=== PATIENT | female | born 1990 | race Caucasian/White ===

== ENCOUNTER 2019-07-24 11:52 | Emergency (ER) | payer OTHER ==
[~2019-07-24] VITALS: Ht 167.6 cm; Wt 90.7 kg
[~2019-07-24 11:52] MED LIST: IBUP800 PO; Verotin-Gr Cap1 EACH PO
[2019-07-24] MEDS ORDERED: Vitamin D2000 UNIT PO (12:53)
== END 2019-07-24 16:07 | disposition home or self-care (01) ==
LOC: ER 11:52
DX: H53.8 Other visual disturbances (principal); R20.2 Paresthesia of skin; R53.83 Other fatigue; R53.1 Weakness; G43.909 Migraine, unspecified, not intractable, without status migrainosus; Z88.8 Allergy status to other drugs, medicaments and biological substances; Z79.899 Other long term (current) drug therapy
CPT/HCPCS: 70450; 99284-25

== ENCOUNTER 2020-06-10 10:46 | Day surgery (SDC) | payer OTHER ==
[~2020-06-10] VITALS: Ht 167.6 cm; Wt 98.0 kg
[~2020-06-10 10:46] MED LIST changes: +BUPR150ER PO; +LEVONOR-ETH ES1 EAC7 PO; +Vitamin D2000 UNIT PO
--- NOTE | 2020-06-10 12:26 | NUR ---
06/10/20 1226 Hakeem Huang ABDOMEN PREPPED WITH CHLORA PREP BY ORSC.OKG NURIA AREA PREPPED WITH CHLOREXIDINE BY ORSC.DANNIELLE
--- NOTE | 2020-06-10 14:49 | NUR ---
06/10/20 1449 Jeremiah,Rahel FENTANYL TITRATED 2 DOSES OF 25MCG AND 1 DOSE OF 1 TAB PERCOCET EFFECTIVE IN CONTROLLING PAIN. DISCHARGE INSTRUCTIONS GIVEN AND PT. STATES UNDERSTANDS. DC HOME WITH ALL BELONGINGS.
[2020-06-10] MEDS ORDERED: OXYC5 ×2 (23:52)
== END 2020-06-10 14:20 | disposition home or self-care (01) ==
LOC: ORSCSDS 10:46
PROVIDERS: Obstetrics & Gynecology
PROC: 0UT74ZZ Resection of Bilateral Fallopian Tubes, Percutaneous Endoscopic Approach (ICD-10-PCS; principal; 2020-06-10 12:00)
DX: Z30.2 Encounter for sterilization (principal)
CPT/HCPCS: 36415; 86850; 86900; 86901; 88302; A9270; J0171; J1100; J1885; J2250; J2405; J2704; J2710; J3010; J7120

== ENCOUNTER 2020-06-10 23:18 | Observation (INO) | payer OTHER ==
[~2020-06-10] VITALS: Ht 167.6 cm; Wt 95.2 kg
[2020-06-10] MEDS ORDERED: OXYC5 ×2 (23:52)
[2020-06-11 00:44] LABS: BASOPHILS ABSOLUTE AUTO 0.03 K/mm3 (0.00-0.23); BASOPHILS PERCENT AUTO 0 % (0-2); EOSINOPHILS PERCENT AUTO 0 % (0-6); Hematocrit 41.5 % (33.0-51.0); Hemoglobin 13.6 g/dL (11.5-16.0); IMMATURE GRAN ABSOLUTE AUTO 0.11 K/mm3 (0.00-0.10); IMMATURE GRAN PERCENT AUTO 1 % (0-1); LYMPHOCYTES ABSOLUTE AUTO 0.47 K/mm3 (0.84-5.20); LYMPHOCYTES PERCENT AUTO 2 % (21-46); MONOCYTES ABSOLUTE AUTO 1.13 K/mm3 (0.16-1.47); MONOCYTES PERCENT AUTO 5 % (4-13); Mean Corpuscular HGB 29.2 pg (26.0-34.0); Mean Corpuscular HGB Conc 32.8 g/dL (31.5-36.5); Mean Corpuscular Volume 89 fL (80-100); Mean Platelet Volume 10.3 fL (9.1-12.4); NEUTROPHILS ABSOLUTE AUTO 20.74 K/mm3 (1.96-9.15); NEUTROPHILS PERCENT AUTO 92 % (41-73); Platelet Count 307 K/mm3 (150-400); RDW Coefficient Variation 12.2 % (11.7-14.2); RDW Standard Deviation 39.7 fL (35.1-46.3); Red Blood Cell Count 4.65 M/mm3 (3.80-5.20); White Blood Cell Count 22.48 K/mm3 (4.00-11.30)
[2020-06-11 01:02] LABS: Alanine Aminotransfer (ALT/SGP 33 U/L (12-78); Albumin, Blood 4.2 g/dL (3.4-5.0); Albumin/Globulin Ratio 1.2 (0.8-1.8); Alk Phos 75 U/L (50-136); Anion Gap 7 mmol/L (6-16); Aspartate Aminotrans (AST/SGOT 18 U/L (12-37); Bilirubin, Total 0.5 mg/dL (0.1-1.0); Blood Urea Nitrogen 12 mg/dL (8-24); Bun/Creatinine Ratio 19.4 (12.0-20.0); CO2, Blood 23 mmol/L (21-32); Calcium, Blood 8.9 mg/dL (8.5-10.1); Chloride, Blood 109 mmol/L (98-108); Creatinine, Blood 0.62 mg/dL (0.40-1.00); Globulin, Blood 3.5 g/dL (2.2-4.0); Glomerular Filtration Rate >60 (60-); Glucose, Blood 156 mg/dL (70-99); Potassium, Blood 3.8 mmol/L (3.5-5.5); Sodium, Blood 139 mmol/L (136-145); Total Protein, Blood 7.7 g/dL (6.4-8.2)
--- NOTE | 2020-06-11 06:23 | NUR ---
ARRIVED FROM ED PT ARRIVED FROM ED AT 0450. SHE IS A POD1 FOR TUBAL LIGATION W/ DR. MASSEY. REPORT RECIEVED FROM KIM AT ED @ 0440. PT AOX4. VSS. SHE AMBULATE FROM STRECHER TO BED, WEAK DUE TO R ABD PAIN. SBA. PT DENIES N/V. BT PRESENT. ABD MILD DISTENDED. LAP INC SITE W/ STERI STRIPS ARE CDI. PERIPAD W/ SMALL SCANT AMOUNT OF BLEED. PT DENIES DIZZINESS, SOB, CP, AND N/T. SHE IS NPO AT THIS TIME. PAIN MED ADMINSTERED. GAS X ALSO GIVEN. PT DENIES PASSING FLATUS SINCE SURGERY. LAST BM WAS MORNING BEFORE SURGERY. PLAN FOR OBSERVATION, MANAGE PAIN, BOWEL REGIMEN, MONITOR LABS AND REPEAT IMAGING.
[2020-06-11 06:54] LABS: Source, Urine Clean Catch
[2020-06-11 06:57] LABS: Bilirubin, Urine Neg (Neg); Blood, Urine 5+ (Neg); Glucose Qualitative, Urine Neg (Neg); Ketones, Urine Neg (Neg); Leukocyte Esterase, Urine Neg (Neg); Nitrite, Urine Neg (Neg); Protein, Urine 1+ (Neg); Urobilinogen, Urine NORM (Normal)
[2020-06-11 06:59] LABS: BASOPHILS ABSOLUTE AUTO 0.03 K/mm3 (0.00-0.23); BASOPHILS PERCENT AUTO 0 % (0-2); EOSINOPHILS PERCENT AUTO 0 % (0-6); Hemoglobin 11.5 g/dL (11.5-16.0); IMMATURE GRAN ABSOLUTE AUTO 0.05 K/mm3 (0.00-0.10); IMMATURE GRAN PERCENT AUTO 0 % (0-1); LYMPHOCYTES ABSOLUTE AUTO 0.61 K/mm3 (0.84-5.20); LYMPHOCYTES PERCENT AUTO 4 % (21-46); MONOCYTES ABSOLUTE AUTO 0.72 K/mm3 (0.16-1.47); MONOCYTES PERCENT AUTO 5 % (4-13); Mean Corpuscular HGB 28.9 pg (26.0-34.0); Mean Corpuscular HGB Conc 31.9 g/dL (31.5-36.5); Mean Corpuscular Volume 91 fL (80-100); Mean Platelet Volume 10.3 fL (9.1-12.4); NEUTROPHILS ABSOLUTE AUTO 14.49 K/mm3 (1.96-9.15); NEUTROPHILS PERCENT AUTO 91 % (41-73); Platelet Count 241 K/mm3 (150-400); RDW Coefficient Variation 12.2 % (11.7-14.2); RDW Standard Deviation 40.9 fL (35.1-46.3); Red Blood Cell Count 3.98 M/mm3 (3.80-5.20)
[2020-06-11 07:16] LABS: Alanine Aminotransfer (ALT/SGP 25 U/L (12-78); Albumin, Blood 3.3 g/dL (3.4-5.0); Albumin/Globulin Ratio 1.1 (0.8-1.8); Alk Phos 59 U/L (50-136); Anion Gap 6 mmol/L (6-16); Aspartate Aminotrans (AST/SGOT 13 U/L (12-37); Bilirubin, Total 0.6 mg/dL (0.1-1.0); Blood Urea Nitrogen 11 mg/dL (8-24); Bun/Creatinine Ratio 17.9 (12.0-20.0); CO2, Blood 26 mmol/L (21-32); Calcium, Blood 8.2 mg/dL (8.5-10.1); Chloride, Blood 110 mmol/L (98-108); Creatinine, Blood 0.62 mg/dL (0.40-1.00); Globulin, Blood 2.9 g/dL (2.2-4.0); Glomerular Filtration Rate >60 (60-); Glucose, Blood 125 mg/dL (70-99); Potassium, Blood 3.6 mmol/L (3.5-5.5); Sodium, Blood 142 mmol/L (136-145); Total Protein, Blood 6.2 g/dL (6.4-8.2)
[2020-06-11 07:18] LABS: Appearance, Urine Clear (Clear); Color, Urine Yellow (P-Yellow)
[2020-06-11 07:23] LABS: Bacteria Few /hpf; Squamous Epithelial Cells Few /hpf (Few)
--- NOTE | 2020-06-11 07:32 | NUR ---
DR FRAGOSO CALLED IN FOR UPDATE. PT LABS REVIEWED W/. WILL NOTIFY DAY RN.
--- NOTE | 2020-06-11 18:26 | NUR ---
SUMMARY: PT ADMITTED FOR R SIDED ABD PAIN WITH POD1 TUBAL LIGATION. PT A/O, VSS. PT HAS HAD INTERMITTANT PAIN AND NAUSEA. MEDICATED PER EMAR. TYLENOL AND TORADOL SEEMED TO IMPROVE PAIN THE MOST AND PT FEELS BETTER AT THIS TIME, RATING PAIN 3/10. PT GIVEN GAS-X, DENIES PASSING GAS, ABLE TO WALK IN THE [place] A FEW TIMES. SURGICAL SITES WNL. PT DID NOT EAT MUCH TODAY DUE TO NAUSEA. FLUIDS CONTINUE TO INFUSE. PT INDEPENDENT IN ROOM, PLAN TO OBSERVE TONIGHT AND POSSIBLY DC TOMORROW. NO ACUTE SAFETY CONCERNS AT THIS TIME.
[2020-06-12 04:57] LABS: BASOPHILS ABSOLUTE AUTO 0.04 K/mm3 (0.00-0.23); BASOPHILS PERCENT AUTO 0 % (0-2); EOSINOPHILS ABSOLUTE AUTO 0.02 K/mm3 (0.00-0.68); EOSINOPHILS PERCENT AUTO 0 % (0-6); Hematocrit 33.6 % (33.0-51.0); Hemoglobin 10.9 g/dL (11.5-16.0); IMMATURE GRAN ABSOLUTE AUTO 0.04 K/mm3 (0.00-0.10); IMMATURE GRAN PERCENT AUTO 0 % (0-1); LYMPHOCYTES ABSOLUTE AUTO 0.65 K/mm3 (0.84-5.20); LYMPHOCYTES PERCENT AUTO 5 % (21-46); MONOCYTES ABSOLUTE AUTO 0.35 K/mm3 (0.16-1.47); MONOCYTES PERCENT AUTO 3 % (4-13); Mean Corpuscular HGB 29.3 pg (26.0-34.0); Mean Corpuscular HGB Conc 32.4 g/dL (31.5-36.5); Mean Corpuscular Volume 90 fL (80-100); Mean Platelet Volume 11.1 fL (9.1-12.4); NEUTROPHILS ABSOLUTE AUTO 11.08 K/mm3 (1.96-9.15); NEUTROPHILS PERCENT AUTO 91 % (41-73); Platelet Count 200 K/mm3 (150-400); RDW Coefficient Variation 12.5 % (11.7-14.2); RDW Standard Deviation 41.1 fL (35.1-46.3); Red Blood Cell Count 3.72 M/mm3 (3.80-5.20); White Blood Cell Count 12.18 K/mm3 (4.00-11.30)
[2020-06-12 05:33] LABS: Alanine Aminotransfer (ALT/SGP 21 U/L (12-78); Albumin, Blood 2.9 g/dL (3.4-5.0); Albumin/Globulin Ratio 0.9 (0.8-1.8); Alk Phos 59 U/L (50-136); Anion Gap 5 mmol/L (6-16); Aspartate Aminotrans (AST/SGOT 21 U/L (12-37); Bilirubin, Total 1.2 mg/dL (0.1-1.0); Blood Urea Nitrogen 12 mg/dL (8-24); Bun/Creatinine Ratio 19.8 (12.0-20.0); CO2, Blood 27 mmol/L (21-32); Calcium, Blood 8.3 mg/dL (8.5-10.1); Chloride, Blood 108 mmol/L (98-108); Creatinine, Blood 0.61 mg/dL (0.40-1.00); Globulin, Blood 3.2 g/dL (2.2-4.0); Glomerular Filtration Rate >60 (60-); Glucose, Blood 89 mg/dL (70-99); Potassium, Blood 3.5 mmol/L (3.5-5.5); Sodium, Blood 140 mmol/L (136-145); Total Protein, Blood 6.1 g/dL (6.4-8.2)
[2020-06-12] MEDS ORDERED: HYDMOR2 PO ×2 (13:40)
[2020-06-12] MEDS ORDERED: SENN187 PO ×2 (13:46)
[2020-06-12] MEDS ORDERED: DOCU100 PO ×2 (13:46)
[2020-06-12] MEDS ORDERED: MIRALAX17 GM PO ×2 (13:46)
--- NOTE | 2020-06-12 14:22 | NUR ---
DISCHARGE PT EDUCATED ON AND RECEIVED PRINTED DISCHARGE INSTRUCTIONS AND VERBALIZED AN UNDERSTANDING. RX FILLED AND PICKED UP BY SIGNIFICANT OTHER. IV DC'D. PT GATHERING ALL PERSONAL BELONGINGS. PT REPORTS SHE FEELS COMFORTABLE GOING HOME.
== END 2020-06-12 14:34 | disposition home or self-care (01) ==
LOC: ER 23:18 → SURS 23:19
PROVIDERS: Emergency Medicine; ADMIT Obstetrics & Gynecology
DX: G89.18 Other acute postprocedural pain (principal); R10.9 Unspecified abdominal pain; G43.909 Migraine, unspecified, not intractable, without status migrainosus; F41.9 Anxiety disorder, unspecified; Z90.49 Acquired absence of other specified parts of digestive tract; Z90.79 Acquired absence of other genital organ(s); Z87.891 Personal history of nicotine dependence; Z79.891 Long term (current) use of opiate analgesic; Z88.8 Allergy status to other drugs, medicaments and biological substances
CPT/HCPCS: 36415; 74177; 76830; 76856; 80053; 81001; 83690; 84703; 85025; 86850; 86900; 86901; 96361; 96374; 96375; 96376; 99284-25; A9270; G0378; J1170; J1885; J2270; J2405; J7120; Q9967

== ENCOUNTER 2020-06-15 19:07 | Inpatient (IN) | payer OTHER ==
[~2020-06-15] VITALS: Ht 167.6 cm; Wt 99.8 kg
[~2020-06-15 19:07] MED LIST changes: +DOCU100 PO; +HYDMOR2 PO; +MIRALAX17 GM PO; +OXYC5; +SENN187 PO
[2020-06-15 20:05] LABS: BASOPHILS ABSOLUTE AUTO 0.06 K/mm3 (0.00-0.23); BASOPHILS PERCENT AUTO 1 % (0-2); EOSINOPHILS ABSOLUTE AUTO 0.04 K/mm3 (0.00-0.68); EOSINOPHILS PERCENT AUTO 0 % (0-6); Hematocrit 38.8 % (33.0-51.0); Hemoglobin 12.8 g/dL (11.5-16.0); IMMATURE GRAN ABSOLUTE AUTO 0.16 K/mm3 (0.00-0.10); IMMATURE GRAN PERCENT AUTO 1 % (0-1); LYMPHOCYTES ABSOLUTE AUTO 0.53 K/mm3 (0.84-5.20); LYMPHOCYTES PERCENT AUTO 4 % (21-46); MONOCYTES ABSOLUTE AUTO 0.93 K/mm3 (0.16-1.47); MONOCYTES PERCENT AUTO 7 % (4-13); Mean Corpuscular HGB 29.1 pg (26.0-34.0); Mean Corpuscular Volume 88 fL (80-100); Mean Platelet Volume 9.7 fL (9.1-12.4); NEUTROPHILS ABSOLUTE AUTO 11.55 K/mm3 (1.96-9.15); NEUTROPHILS PERCENT AUTO 87 % (41-73); Platelet Count 429 K/mm3 (150-400); RDW Coefficient Variation 12.6 % (11.7-14.2); RDW Standard Deviation 41.2 fL (35.1-46.3); White Blood Cell Count 13.27 K/mm3 (4.00-11.30)
[2020-06-15] MEDS ORDERED: IBU800 M1 PO (20:26)
[2020-06-15] MEDS ORDERED: ONDA4ODT PO (20:27)
[2020-06-15 20:30] LABS: Alanine Aminotransfer (ALT/SGP 18 U/L (12-78); Albumin, Blood 2.7 g/dL (3.4-5.0); Albumin/Globulin Ratio 0.6 (0.8-1.8); Alk Phos 141 U/L (50-136); Anion Gap 10 mmol/L (6-16); Aspartate Aminotrans (AST/SGOT 11 U/L (12-37); Bilirubin, Total 0.4 mg/dL (0.1-1.0); Blood Urea Nitrogen 8 mg/dL (8-24); Bun/Creatinine Ratio 12.1 (12.0-20.0); CO2, Blood 25 mmol/L (21-32); Calcium, Blood 8.5 mg/dL (8.5-10.1); Chloride, Blood 104 mmol/L (98-108); Creatinine, Blood 0.66 mg/dL (0.40-1.00); Globulin, Blood 4.7 g/dL (2.2-4.0); Glomerular Filtration Rate >60 (60-); Glucose, Blood 88 mg/dL (70-99); Sodium, Blood 139 mmol/L (136-145); Total Protein, Blood 7.4 g/dL (6.4-8.2)
[2020-06-15 23:15] LABS: Influenza A, PCR Negative (NEGATIVE); Influenza B, PCR Negative (NEGATIVE); Resp Syncytial Virus, PCR Negative (NEGATIVE); SARS-Cov-2 (COVID-19) PCR, MMC Negative (NEGATIVE)
--- NOTE | 2020-06-16 03:27 | NUR ---
7.0 ETT, 21 CM AT LIP.
[2020-06-16 04:02] LABS: BASOPHILS ABSOLUTE AUTO 0.09 K/mm3 (0.00-0.23); BASOPHILS PERCENT AUTO 1 % (0-2); EOSINOPHILS ABSOLUTE AUTO 0.01 K/mm3 (0.00-0.68); EOSINOPHILS PERCENT AUTO 0 % (0-6); Hematocrit 44.1 % (33.0-51.0); Hemoglobin 14.9 g/dL (11.5-16.0); IMMATURE GRAN ABSOLUTE AUTO 0.33 K/mm3 (0.00-0.10); IMMATURE GRAN PERCENT AUTO 2 % (0-1); LYMPHOCYTES ABSOLUTE AUTO 0.34 K/mm3 (0.84-5.20); LYMPHOCYTES PERCENT AUTO 2 % (21-46); MONOCYTES ABSOLUTE AUTO 0.58 K/mm3 (0.16-1.47); MONOCYTES PERCENT AUTO 4 % (4-13); Mean Corpuscular HGB 29.6 pg (26.0-34.0); Mean Corpuscular HGB Conc 33.8 g/dL (31.5-36.5); Mean Corpuscular Volume 88 fL (80-100); Mean Platelet Volume 9.7 fL (9.1-12.4); NEUTROPHILS ABSOLUTE AUTO 13.13 K/mm3 (1.96-9.15); NEUTROPHILS PERCENT AUTO 91 % (41-73); Platelet Count 526 K/mm3 (150-400); RDW Coefficient Variation 12.6 % (11.7-14.2); RDW Standard Deviation 40.7 fL (35.1-46.3); Red Blood Cell Count 5.04 M/mm3 (3.80-5.20); White Blood Cell Count 14.48 K/mm3 (4.00-11.30)
[2020-06-16 04:24] LABS: BAND PERCENT MAN 13 % (0-8); BASOPHILS ABSOLUTE MAN 0.14 K/mm3 (0.00-0.23); BASOPHILS PERCENT MAN 1 % (0-2); EOSINOPHILS PERCENT MAN 0 % (0-6); LYMPHOCYTES ABSOLUTE MAN 0.28 K/mm3 (0.84-5.20); LYMPHOCYTES PERCENT MAN 2 % (21-46); METAMYELOCYTE ABSOLUTE MAN 0.14 K/mm3 (0.00-0.00); METAMYELOCYTE PERCENT MAN 1 % (0-0); MONOCYTES ABSOLUTE MAN 0.43 K/mm3 (0.16-1.47); MONOCYTES PERCENT MAN 3 % (4-13); NEUTROPHILS ABSOLUTE MAN 13.46 K/mm3 (1.96-9.15); SEG NEUTROPHILS PERCENT MAN 80 % (41-73); TOTAL CELLS COUNTED 100
[2020-06-16 04:42] LABS: Alanine Aminotransfer (ALT/SGP 24 U/L (12-78); Albumin, Blood 2.3 g/dL (3.4-5.0); Albumin/Globulin Ratio 0.5 (0.8-1.8); Alk Phos 121 U/L (50-136); Anion Gap 12 mmol/L (6-16); Aspartate Aminotrans (AST/SGOT 52 U/L (12-37); Bilirubin, Total 1.1 mg/dL (0.1-1.0); Blood Urea Nitrogen 9 mg/dL (8-24); Bun/Creatinine Ratio 13.7 (12.0-20.0); CO2, Blood 21 mmol/L (21-32); Calcium, Blood 7.6 mg/dL (8.5-10.1); Chloride, Blood 104 mmol/L (98-108); Creatinine, Blood 0.66 mg/dL (0.40-1.00); Globulin, Blood 4.5 g/dL (2.2-4.0); Glomerular Filtration Rate >60 (60-); Glucose, Blood 165 mg/dL (70-99); Potassium, Blood 3.8 mmol/L (3.5-5.5); Sodium, Blood 137 mmol/L (136-145); Total Protein, Blood 6.8 g/dL (6.4-8.2)
[2020-06-16 04:53] LABS: Source, Urine Catheter
[2020-06-16 04:55] LABS: Appearance, Urine Clear (Clear); Bilirubin, Urine Neg (Neg); Blood, Urine 2+ (Neg); Color, Urine Yellow (P-Yellow); Glucose Qualitative, Urine Neg (Neg); Ketones, Urine 4+ (Neg); Leukocyte Esterase, Urine Neg (Neg); Nitrite, Urine Neg (Neg); Protein, Urine 2+ (Neg); Urobilinogen, Urine NORM (Normal)
[2020-06-16 05:02] LABS: Amorphous Light (0-Heavy); Bacteria Few /hpf; Squamous Epithelial Cells Not Seen /hpf (Few); White Blood Cells, Urine 0-2 /hpf (0-5)
[2020-06-16 05:03] LABS: Granular Casts 0-2 /lpf (0); Hyaline Casts 0-2 /lpf (0-2)
--- NOTE | 2020-06-16 06:37 | NUR ---
ASSUMED PT CARE/END OF SHIFT SUMMARY PT ARRIVED ON UNIT FROM OR AFTER EXPLORATORY LAPAROTOMY SECONDARY TO BOWEL PERF. PT HAD A LAPARSCOPIC TUBAL LIGATION ON 06/10. DR. LOUIE EXPRESSED THAT HE WAS UNABLE TO FIND WHERE THE BOWEL PERF WAS; THEREFORE, PT ABDOMEN WAS LEFT OPEN WITH TWO PAN DRAINS IN PLACE, OR TOWLS PACKED INTO ABDOMINAL WOUND, AND COVERED WITH TRANSPARENT DRESSING. MINIMAL AMOUNTS OF SEROSANGUINEOUS DRAINAGE NOTED IN PAN DRAINS; HOWEVER, UNABLE TO MAINTAIN SUCTION. THOUGHT THAT MAYBE DRESSING WASN'T SECURE ENOUGH; THEREFORE, COVERED WITH MORE TRANSPARENT DRESSING WITH NO SUCCESS. CONCLUSSION WAS MADE THAT BOWEL WAS FULL OF AIR AND PAN BULBS WERE NOT ABLE TO COMPRESS D/T CONSTANT FILLING. ASKED DR. LOUIE IF HE WANTED THEM HOOKED TO WALL SUCTION AT LOW INTERMITTENT WITH THE RESPONSE TO CONTINUE DECOMPRESSING PAN DRAINS. VENT AC 16, TV 450, PEEP 5, FIO2 35%. PT WAS GIVEN 2MG OF VERSED AND 50MG OF BRAD UNTIL PROPOFOL GTT WAS ABLE TO BE INITIATED ONCE PT WAS ON UNIT. FURTHER ORDERS OBTAINED FOR FENTANYL GTT AND NS AT 150MLS/HR, WELL A 500CC BOLUS IF BP'S CONTINUED TO BE LOW. ANESTHESIOLOGIST STATED TO START PROPOFOL AT 75MCG/KG/HR D/T PT'S WEIGHT. CURRENTLY, SHE IS AT 65MCG/KG/HR. FENTANYL GTT AT A CONTINUOUS RATE OF 25MCG/HR WITH A LOADING DOSE OF 25MCG. MCLEAN CATHETER IS PATENT AND DRAINING CLEAR, LISA COLORED URINE TO GRAVITY. NG HOOKED TO LOW INTERMITTENT SUCTION WITH NO OUTPUT NOTED; HOWEVER, ANESTHESIOLOGIST STATED THAT PT HAD OVER 600CC OF OUTPUT NOTED IN THE OR. REPORT HANDED OFF TO DOUG SHARP
--- NOTE | 2020-06-16 08:23 | NUR ---
INITAL ASSESSMENT BEDSIDE REPORT RECIEVED FROM OFF GOING RN. PT IS INTUBATED AND SEDATED. SEE RT NOTES FOR ANY VENT SETTING CHANGES T/O SHIFT. PROPOFOL GTT AT 65MCG FOR SEDTATION AND WILL BE TITRATED T/O SHIFT NEEDED. FENTANYL GTT AT 50MCG FOR PAIN AND ADDITIONAL SEDATION. WITH ORAL CARE PT OPENS EYES AND SHAKES HEAD, BUT DOES NOT FOLLOW ANY COMMANDS. OMAR SOFT WRIST RESTRAINTS IN PLACE WITH NO SKIN OR CIRCULATION ISSUES. PT DOES PULL AGAINST RESTRAINS AND WILL MOVE LEGS. PT DOES HAVE NG TUBE IN PLACE TO LOW INT SUCTION. WITH MINIMAL BILE RETURN IN TUBE. PT HAS AN OPEN ABD AT THIS TIME WITH BLUE OR TOWEL FOR PACKING. ABD IS FIRM WITH NO BOWEL TONES. TWO PAN DRAINS IN PLACE. THE PAN BULBS CONSTANTLY FILL UP WITH AIR BUT HAVE VERY MINIMAL DRAINAGE. MCLEAN CATH IN PLACE DRAINING CLEAR YELLOW URINE. NO S/S OF INFECTION. PT DOES HAVE PAS STOCKINGS IN PLACE. TWO PERIPHERAL IVS NOTED TO RIGHT ARM. PT DOES HAVE NS RUNNING ORDERED. SEE EMAR FOR ALL ADMINISTERED MEDICATIONS T/O SHIFT. WILL CON'T TO KEEP PT SAFE T/O SHIFT.
--- NOTE | 2020-06-16 13:21 | NUR ---
SHIFT UPDATE DR LOUIE IN TO SEE PT AND CONSENT FOR SURGERY. DR MCKEON AND OR NURSE LINDA TO TAKE PT TO OR. PT IS AWAKE AT THIS TIME SHAKING HEAD YES OR NO TO QUESTIONS. SHE ALSO IS OPENINING HER MOUTH TO ALLOW THIS RN TO SUCTION HER ORAL SECRETIONS. SAFETY AND SECURITY OFFICER WAS CLEARNING WITH YOLANDE MCMILLAN RN. LTC WAS 18CC. TOTAL ADMINISTERED 161MCG.
--- NOTE | 2020-06-16 13:50 | NUR ---
06/16/20 1350 Rose Banks TRASPORTED PT FROM ICU13 VIA BED WITH . PT SEDATED AND INTUBATED. MIKE BAGGING PT DURING TRANSPORT. DRESSINNG ON ABDOMEN REMOVED BY ONCE PT ON OPERATING TABLE. DR. LOUIE RETRIEVED 2 BLUE OPERATING ROOM TOWELS FROM OPEN ABDOMEN.
--- NOTE | 2020-06-16 15:41 | NUR ---
1540-PT STATES NAUSEA IS GONE.WILL NOT GIVE A 1-10 PAIN NUMBER
--- NOTE | 2020-06-16 16:00 | NUR ---
pt arrived to room 229 from pacu s/p resection pt has midline poli dressing c/d/i pt also has a abd binder in place and ngt also using a sx to dlear mucus with coughs pt given is will demonstrate when more alert pt has a cl green drainage in tubing absent bt's
--- NOTE | 2020-06-16 16:35 | NUR ---
dilaudid teacher ballet started pt reported some cramping luq abd no bt's yet pt req a fan for being hot s/o at bedside
--- NOTE | 2020-06-16 18:01 | NUR ---
DR SKY CALLED UPDATE GIVEN
--- NOTE | 2020-06-16 18:30 | NUR ---
pt resting s/o at bedside
[2020-06-17 04:10] LABS: BASOPHILS ABSOLUTE AUTO 0.05 K/mm3 (0.00-0.23); BASOPHILS PERCENT AUTO 0 % (0-2); EOSINOPHILS PERCENT AUTO 0 % (0-6); Hematocrit 35.7 % (33.0-51.0); IMMATURE GRAN ABSOLUTE AUTO 0.56 K/mm3 (0.00-0.10); IMMATURE GRAN PERCENT AUTO 3 % (0-1); LYMPHOCYTES ABSOLUTE AUTO 0.72 K/mm3 (0.84-5.20); LYMPHOCYTES PERCENT AUTO 4 % (21-46); MONOCYTES ABSOLUTE AUTO 1.08 K/mm3 (0.16-1.47); MONOCYTES PERCENT AUTO 6 % (4-13); Mean Corpuscular HGB 29.3 pg (26.0-34.0); Mean Corpuscular HGB Conc 33.6 g/dL (31.5-36.5); Mean Corpuscular Volume 87 fL (80-100); Mean Platelet Volume 9.2 fL (9.1-12.4); NEUTROPHILS ABSOLUTE AUTO 14.38 K/mm3 (1.96-9.15); NEUTROPHILS PERCENT AUTO 86 % (41-73); Platelet Count 462 K/mm3 (150-400); RDW Coefficient Variation 13.1 % (11.7-14.2); RDW Standard Deviation 41.8 fL (35.1-46.3); White Blood Cell Count 16.79 K/mm3 (4.00-11.30)
[2020-06-17 04:33] LABS: Anion Gap 4 mmol/L (6-16); Blood Urea Nitrogen 14 mg/dL (8-24); Bun/Creatinine Ratio 24.6 (12.0-20.0); CO2, Blood 27 mmol/L (21-32); Calcium, Blood 7.4 mg/dL (8.5-10.1); Chloride, Blood 113 mmol/L (98-108); Creatinine, Blood 0.57 mg/dL (0.40-1.00); Glomerular Filtration Rate >60 (60-); Glucose, Blood 159 mg/dL (70-99); Potassium, Blood 3.8 mmol/L (3.5-5.5); Sodium, Blood 144 mmol/L (136-145)
--- NOTE | 2020-06-17 06:32 | NUR ---
SHIFT SUMMARY PT IS A/O X4. PT HAS REFUSED REPOSITIONING D/T DISCOMFORT WITH MOVEMENT. ABD BINDER IN PLACE. PAIN MANAGED WITH WEDDING MAKEUP ARTIST. NG TUBE TO LOW INT. SUCTION OVERNIGHT. MINIMAL OUTPUT FROM NG. VSS. PT HAS HAD DARK, CLOUDY/MILKY LOOKING URINE OVERNIGHT - MCLEAN IN PLACE, PATENT. IV FLUIDS INFUSING PER ORDER. PT'S S/O STAYED THE NIGHT. PT RESTING AT THIS TIME WITH CALL LIGHT IN REACH.
--- NOTE | 2020-06-17 08:15 | NUR ---
DR AGUIRRE TO SEE PT, FAMILY PRESENT. REPORTS OK FOR SIPS AND CHIPS.
--- NOTE | 2020-06-17 17:30 | NUR ---
SHIFT SUMMARY PT NPO. PT UP TO CHAIR THIS AFTERNOON. PT HAS MCLEAN IN PLACE. PT HAS NGT IN PLACE, CANISTER MARKED THIS AFTERNOON/EVENING. PT FAMILY IN ROOM TODAY. PT BEEN ASSISTED WITH ADL'S PRN. PT REPOSITIONING SELF SLOWLY.
--- NOTE | 2020-06-17 23:46 | NUR ---
PATIENT HAS A FLAT AFFECT, SHE EXHIBITS ANXIETY AND STATES THAT SHE IS ANXIOUS AND NERVOUS ABOUT ANYTHING NEW OR THAT SHE DOES NOT UNDERSTAND. SHE IS RECEPTIVE TO PATIENT TEACHING AND FOLLOWS COMMANDS WITH HER EDUCATION. SHE RESPONDS WELL TO ENCOURAGMENT AND REASSURANCES THAT THE COMPLAINTS THAT SHE IS HAVING A NORMAL WITH THE PROCEDURES THAT SHE HAS HAD DONE. AFTER MOVING FROM THE CHAIR TO THE BED, SHE HAD COMPLAINTS OF HER MCLEAN CATH HURTING HER, CATH CARE WAS DONE BY THIS RN AND THE CATH WAS REPOSITIONED SO THAT IT DID NOT PULL. SHE STATES THAT HER THROAT IS SORE AND THAT IT FEELS THOUGH SHE HAS MUCUS THAT SHE DOES NOT WANT TO COUGH UP. PATIENT HAS BEEN USING HER INCENTIVE SPIROMETER AND WAS STARTED ON A FLUTTER VALVE TO HELP WITH MUCUS. SHE IS TAKING ICE CHIPS AND POPSCILES FOR THROAT COMFORT AND HAS HAD NO NAUSEA. NG IS SECURE AND TO LIS. PATIENT IS ALSO USING A YANKAUR FOR ORAL SECRETIONS. IS STAYING THE NIGHT FOR PATIENT COMFORT. CALL LIGHT IN REACH.
--- NOTE | 2020-06-18 11:12 | NUR ---
DR. AGUIRRE CAME IN AROUND 0800 AND CLAMPED THE NG TUBING. RON CHARGE NURSE TOOK OUT MCLEAN AROUND THE SAME TIME.
--- NOTE | 2020-06-18 15:25 | NUR ---
NAUSEA PT C/O NAUSEA AND FEELING BLOATED. NGT CONNECTED TO SUCTION, IMMEDIETE RETURN OF 200ML CLEAR LIQUID. AFEBRILE. LEFT CONNECTED TO SUCTION AT THIS TIME
--- NOTE | 2020-06-18 16:01 | NUR ---
SHIFT SUMMARY: POD 2 OF MESENTARIC BOARDER REMOVAL PT IS ALERT AND ORIENTED X4 WHILE AWAKE. SHE HAS BEEN TAKING FREQUENT NAPS DURING THE DAY BUT IS EASILY AROUSABLE. HER NG TUBE WAS CLAMPED PER DR. SULLIVAN ORDERS HOWEVER IT FAILED SINCE SHE BECAME FEELING WORSE. NG TUBE HAD PINK FLUID OUTPUT INSTANTLY COME OUT ONCE INTERMITTENT SUCTION WAS TURNED BACK ON. HER MCLEAN WAS ALSO REMOVED PER DR. SULLIVAN ORDERS. VS ARE WNL AND IS ON RA. HER BED IS TO BE KEPT BETWEEN 30-40 DEGREES. HER PAIN IS CONTROLLED WITH TIP PUNCHER PUMP. SHE HAS BEEN "FEELING GAS IN MY STOMACH" SHE REPORTS. SHE CALLS APPROPRIATELY. CALL LIGHT WITHIN REACH. THE PLAN IS TO CONTINUE ABX AND ENCOURAGE MORE AMBULATION.
--- NOTE | 2020-06-19 04:36 | NUR ---
SHIFT SUMMARY: PT POD #3 FOR ENTERORRHAPHY AND ABD CLOSURE. MIDLINE ELLE WOUND VAC COMPRESSED WITH A SCANT AMOUNT OF DRY BLOODY DRG NOTED. NGT IN PLACE AND CONNECTED TO LIS. PT ANXIOUS AT TIMES THINKING THAT THE NGT IS NOT SUCTIONING. PT NEEDING FREQ REASSURANCE. APPROX 500CC OF NGT DRG OUT. PT ABLE TO SLEEP FOR SEVERAL HOURS BUT THEN COMPLAINED OF SEVERE PAIN WHEN WAKING UP. PT REMINDED TO USE BRUSHER MACHINE BUTTON PRN. PAIN BETTER MANAGED AT THIS TIME. ABD BINDER IN PLACE. PT OUT OF BED WITH ONE MODERATE ASSIST TO BATHROOM. USING BSC OVER NIGHT. MEDICATED WITH ZOFRAN TWICE FOR C/O NAUSEA. NO EMESIS. USING SUCTION AT BEDSIDE FOR COMFORT. AMANDA SMALL AMOUNT OF ICE CHIPS. AT BEDSIDE.
[2020-06-19 08:52] LABS: BASOPHILS ABSOLUTE AUTO 0.07 K/mm3 (0.00-0.23); BASOPHILS PERCENT AUTO 1 % (0-2); EOSINOPHILS ABSOLUTE AUTO 0.15 K/mm3 (0.00-0.68); EOSINOPHILS PERCENT AUTO 1 % (0-6); Hematocrit 33.7 % (33.0-51.0); Hemoglobin 10.7 g/dL (11.5-16.0); IMMATURE GRAN ABSOLUTE AUTO 0.43 K/mm3 (0.00-0.10); IMMATURE GRAN PERCENT AUTO 4 % (0-1); LYMPHOCYTES ABSOLUTE AUTO 1.51 K/mm3 (0.84-5.20); LYMPHOCYTES PERCENT AUTO 15 % (21-46); MONOCYTES ABSOLUTE AUTO 0.53 K/mm3 (0.16-1.47); MONOCYTES PERCENT AUTO 5 % (4-13); Mean Corpuscular HGB 28.9 pg (26.0-34.0); Mean Corpuscular HGB Conc 31.8 g/dL (31.5-36.5); Mean Corpuscular Volume 91 fL (80-100); NEUTROPHILS ABSOLUTE AUTO 7.71 K/mm3 (1.96-9.15); NEUTROPHILS PERCENT AUTO 74 % (41-73); Platelet Count 398 K/mm3 (150-400); RDW Coefficient Variation 13.2 % (11.7-14.2); RDW Standard Deviation 43.8 fL (35.1-46.3)
[2020-06-19 09:08] LABS: Anion Gap 7 mmol/L (6-16); Blood Urea Nitrogen 17 mg/dL (8-24); Bun/Creatinine Ratio 31.7 (12.0-20.0); CO2, Blood 28 mmol/L (21-32); Calcium, Blood 7.6 mg/dL (8.5-10.1); Chloride, Blood 112 mmol/L (98-108); Creatinine, Blood 0.54 mg/dL (0.40-1.00); Glomerular Filtration Rate >60 (60-); Glucose, Blood 80 mg/dL (70-99); Potassium, Blood 3.2 mmol/L (3.5-5.5); Sodium, Blood 147 mmol/L (136-145)
--- NOTE | 2020-06-19 13:12 | NUR ---
PT WAS ABLE TO AMBULATE TO THE BATHROOM AND VOID 200ML OF URINE AND PASS A SMALL AMOUNT OF GAS. SHE THEN AMBULATED FROM THE ROOM TO THE NURSES STATION AND BACK TO THE CHAIR IN HER ROOM. DURING THE WALK SHE WAS WINDED TWICE BUT SHE DID VERY WELL. PT WANTS TO DO ANOTHER WALK BEFORE THE END OF SHIFT.
--- NOTE | 2020-06-19 15:57 | NUR ---
SHIFT SUMMARY: POD 3 ENTERORRAPHY AND ABD CLOSURE PT HAS BEEN ALERT AND ORIENTED X4 THROUGHOUT SHIFT. HER VITALS HAVE BEEN WNL AND IS ON RA. PAIN IS CONTROLLED WITH SPLITTING MACHINE FEEDER PUMP. SHE WAS ABLE TO AMBULATE TWICE IN THE [place] WAY AND TOLERATED IT WELL. NG TUBE IS ON INTERMITTENT SUCTION AND HAS BEEN HAVING OUTPUT DURING SHIFT. HER MIDLINE ELLE DRESSING IS C/D/I AND IS COMPRESSED. THE 3 LAP SITES HAVE GAUZE THAT ARE ALSO C/D/I. SHE IS CURRENTLY GETTING A POWERGLIDE IN PLACE SINCE HER IV ON HER RIGHT ARM WAS INFILTRATED. THE RIGHT ARM IS SWOLLEN AND WILL BE ELEVATED AT THE HEART WITH A KPAD TO DECREASE SWELLING. THE PLAN IS TO KEEP ENCOURAGING WALKING AND PO FLUIDS AND ABX.
--- NOTE | 2020-06-19 20:44 | NUR ---
PT LYING IN BED, A/O. VSS, LUNGS CLEAR, DIM IN BASES. ELLE DRESSING TO MID INTACT W/SEAL AND SX INTACT; ABD BINDER IN PLACE OVER DRESSING. ABD MOD DISTENDED, SOFT TO PALP, BT HYPO. PT REP NO FLATUS YET. NGT TO LIS, DRNG CLEAR GREEN W/SMALL AMT SEDIMENT. PT EDUCATED TO TAKE DIPS AND ICE CHIPS SLOWLY. PT REP PAIN AMANDA W/PORTFOLIO STRATEGIST. RUE SWOLLEN (PREV IV SITE INFILTRATED) ELEVATED ON PILLOW, 2 SMALL OPEN BLISTERS DRNG CLEAR DRNG. IV SITE TO LAC WNL, IVF AND PORTFOLIO STRATEGIST RUNNING PER ORDERS. PT EDUCATED ON BENEFITS OF AMB AND I/S USE. SIG OTHER IN ROOM. PLAN TO MONITOR AND TX PER ORDERS.
--- NOTE | 2020-06-20 07:16 | NUR ---
POD4 FOR ENTERORRAPHY. PT A0X4. VSS. PT REPORTS MILD DIZZINESS WHEN GETTING UP FROM BED.SBA 1 ASSIST. REMAIN NPO, ONLY SIPS AND ICE CHIPS, POPSICLES. EDUC W/ TAKING SLOW ON PO INTAKE TOLERATING IT WELL BUT REPORTS X2 NAUSEA THIS MORNING. MEDICATED W/ ZOFRAN. NG TUBE STILL ON INT SUCT DENIES VOMITING, OUTPUT OF 800ML DURING MY SHIFT. IV ON R AC INFLITRATED YESTERDAY, HAD COUPLE BLISTERS AND SWELLING HAS IMPROVED. R ARM WAS ELEVATED. ABD PAIN AMANDA W/ PLANT AND EQUIPMENT WORKER. WALKED IN THE HALLWAY ONCE DURING MY SHIFT. ABD IS MORE ACTIVE THIS MORNING. VOIDING ADEQUATELY. PT HAS NOT PASS FLATUS, DENIES BM. ABD WITH ELLE ON MIDLINE, COMPRESSED AND INTACT WITH SMALL DRY DRAINAGE. ABX ADMIN AND FLUIDS INFUSING. CALL LIGHT W/IN REACH.
--- NOTE | 2020-06-20 07:33 | NUR ---
PT VSS T/O NIGHT. O2 DEC TO 1L NC THIS AM, PT HAS PROD COUGH, IS USING I/S AT BEDSIDE. ELLE DRESSING INTACT W/SEAL AND SX MAINTAINED. LAP SITES WNL, ABD BINDER IN PLACE. NGT DRAINING APPX 150ML OUTPUT; PT TAKING SIPS AND ICE CHIPS SLOWLY. BT MORE ACTIVE THIS AM, PT REP NO FLATUS YET. PT IS VOIDING URINE W/O DIFFICULTY. PAIN MGD W/WEATHER CLERK. RUE ELEVATED ON PILLOWS, SWELLING IMPROVED THIS AM. PT AMB IN HALLS X1, REP FEELING "WORN OUT" AFTER WALK. IVF AND ABX CONT PER ORDERS. SUPPORT AND EDUCATION PRN T/O NIGHT. SIG OTHER AT BEDSIDE. BEDSIDE REPORT GIVNE TO DAY RN. DR AGUIRRE UPDATED DURING AM ROUNDING.
--- NOTE | 2020-06-20 18:17 | NUR ---
SHIFT SUMMARY PT IS POD#[address] LAP WITH DR[address] LOUIE. PT HAS HAD INCREASED ABD PAIN, CRAMPING AND NAUSEA THIS SHIFT. PAIN HAS BEEN MANAGED WITH DIE DESIGNER APPRENTICE; TORADOL STARTED FOR ADDITIONAL PAIN MANAGEMENT. PT HAS BEEN UP TO THE CHAIR FOR MOST OF THE DAY. SHE HAS AMBULATED WITH SBA. NG TUBE REMAINS IN PLACE AND CONTINUES TO DRAIN YELLOWISH CLEAR FLUID WITH SOME SEDIMENT. PT IS COUGHING UP THICK YELLOW/BLOOD TINGED SPUTUM. VSS. WILL MONITOR UNTIL REPORT TO ONCOMING RN.
--- NOTE | 2020-06-21 00:15 | NUR ---
PT SLEEPING APPEARS COMFORTABLE AT ROOM AIR. O2 SAT RECHECKED, 85-88%. ADM 2L 02 ON N/C, O2 SAT IMPROVED TO 95%. PT WENT BACK TO SLEEP.
--- NOTE | 2020-06-21 01:12 | NUR ---
PT SLEEPING, RESP E/U. 2L02 NC [address].
--- NOTE | 2020-06-21 06:23 | NUR ---
SHIFT SUMMARY POD6 FROM EX LAP. PT AOX4. VSS. PT STILL C/O ABD PAIN, MEDICATED W/ TORADOL AND SANDBLASTER GLASS(DILAUDID ON DEMAND). PT AMANDA SIPS/ICE CHIPS/POPSICLE BUT C/O CONSTANT NAUSEA DENIES VOMITING. PT HAS PASS FLATUS THIS AM. SHE HAD 1 SMALL BM. BOWEL TONES ARE MORE ACTIVE THIS MORNING. NG TUBE IN PLACE, OUTPUT OF 250ML. SUCTION/INTERMITTENLY. PT WAS ON RA, HAD TO PUT 2L 02 N/C AT SLEEP DUE TO O2 SAT AT 85-88%. PT 02 SAT AT 95% ON 2L O2. FLUIDS STILL INFUSING, ABX ADMINSTERED. PT MAY NEED DIETARY CONSULT FOR TODAY,WILL ADDRESS TO DAY SHIFT NURSE. ABD MIDLINE ELLE INTACT, SUCTION/SEALED. ABD BINDER IN PLACED. PT STILL ON HER MENS CYCLE REPORTS JUST MILD VAG BLEED. CALL LIGHT W/IN REACH.
--- NOTE | 2020-06-21 06:37 | NUR ---
PT VSS T/O NIGHT. ABD REMAINS MOD DISTENDED, TENDER TO PALP. BT HYPO; ARE MORE ACTIVE THIS AM. PT REP FLATUS X1 THIS AM. NGT DRAINAGE APPX 250ML. PT DID C/O INTERMITTANT NAUSEA, ZOFRAN GIVEN PER EMAR. PT AMB IN HALLS, SBA, REP MILD DIZZINESS WHEN FIRST UP. IVF AND ABX CONT PER ORDERS. ELLE DRESSING W/SEAL AND SX INTACT. SUPPORT AND EDUCATION CONT PRN T/O NIGHT.
--- NOTE | 2020-06-21 08:59 | NUR ---
ABD PAIN PT C/O ABD CRAMPING FEELING NAUSEATED. PT MEDICATED WITH ZOFRAN PER EMAR. PT HAS HAD TWO SMALL LOOSE STOOLS SINCE BEGINING OF SHIFT-PT STATES THAT THIS IS MAKING HER STOMACH "HURT WORSE". DR LOUIE NOTIFIED. ORDERS TO BE PLACED FOR PHENERGAN AND ABD CT SCAN.
--- NOTE | 2020-06-21 09:51 | NUR ---
PT TO CT
[2020-06-21 10:05] LABS: BASOPHILS ABSOLUTE AUTO 0.06 K/mm3 (0.00-0.23); BASOPHILS PERCENT AUTO 1 % (0-2); EOSINOPHILS ABSOLUTE AUTO 0.11 K/mm3 (0.00-0.68); EOSINOPHILS PERCENT AUTO 1 % (0-6); Hematocrit 33.5 % (33.0-51.0); Hemoglobin 10.7 g/dL (11.5-16.0); IMMATURE GRAN ABSOLUTE AUTO 0.28 K/mm3 (0.00-0.10); IMMATURE GRAN PERCENT AUTO 3 % (0-1); LYMPHOCYTES ABSOLUTE AUTO 0.93 K/mm3 (0.84-5.20); LYMPHOCYTES PERCENT AUTO 9 % (21-46); MONOCYTES ABSOLUTE AUTO 0.45 K/mm3 (0.16-1.47); MONOCYTES PERCENT AUTO 4 % (4-13); Mean Corpuscular HGB 28.5 pg (26.0-34.0); Mean Corpuscular HGB Conc 31.9 g/dL (31.5-36.5); Mean Corpuscular Volume 89 fL (80-100); Mean Platelet Volume 8.9 fL (9.1-12.4); NEUTROPHILS ABSOLUTE AUTO 8.48 K/mm3 (1.96-9.15); NEUTROPHILS PERCENT AUTO 82 % (41-73); Platelet Count 384 K/mm3 (150-400); Red Blood Cell Count 3.75 M/mm3 (3.80-5.20); White Blood Cell Count 10.31 K/mm3 (4.00-11.30)
[2020-06-21 10:30] LABS: Anion Gap 7 mmol/L (6-16); Blood Urea Nitrogen 13 mg/dL (8-24); Bun/Creatinine Ratio 23.4 (12.0-20.0); CO2, Blood 32 mmol/L (21-32); Calcium, Blood 8.3 mg/dL (8.5-10.1); Chloride, Blood 106 mmol/L (98-108); Creatinine, Blood 0.56 mg/dL (0.40-1.00); Glomerular Filtration Rate >60 (60-); Glucose, Blood 94 mg/dL (70-99); Potassium, Blood 3.1 mmol/L (3.5-5.5); Sodium, Blood 145 mmol/L (136-145)
--- NOTE | 2020-06-21 18:19 | NUR ---
SHIFT SUMMARY PT CONDINUES TO HAVE C/O NAUSEA T/O SHIFT. TOTAL OF 400ML BROWN LIQUID FROM NG TUBE THIS SHIFT, PT DENIES ANY PO INTAKE TO SUBTRACT FROM NG TOTAL. PT HAS HAD APROX 5 LIQUID/GRAINY GREEN BM. MANAGER TRANSFER FOR PAIN BUT PT IS HESITANT TO USE IT SHE IS WORRIED ABOUT CONSTIPATION, PT ENCOURAGED TO USE IF NEEDED-ALSO MEDICATED WITH IV TORADOL. PT UP TO SHOWER WITH ASSISTANCE AND TO CHAIR. PICCO DRESSING WITH FOAM COMPRESSED, SCANT AMT SS DRAINAGE PRESENT.
--- NOTE | 2020-06-22 04:47 | NUR ---
SHIFT SUMMARY: NO ACUTE CHANGES THIS SHIFT. PT CONTINUES TO C/O ABD CRAMPING. PT ATTEMPTING TO WEAN DOWN ON USE OF FENTANYL RELAY TESTER. PT REPORTS USING BUTTON APPROX Q1 HR. PT ALSO BEING MEDICATED WITH TORADOL PER EMAR. NG TUBE REMAINS CLAMPED. PT C/O NAUSEA THROUGHOUT SHIFT. NO EMESIS. BEING MEDICATED WITH ZOFRAN AND PHENERGAN PER EMAR. HYPOACTIVE BT THROUGHOUT. PT HAS NOT TAKEN ANYTHING PO THIS SHIFT. IVF AND ABX INFUSING PER EMAR. ELLE DRESSING IN PLACE AND COMPRESSED. PT REPORTS OVERALL NOT FEELING WELL.
--- NOTE | 2020-06-22 09:19 | NUR ---
ASSESSMENT PT DOES STILL C/O NAUSEA BUT DOES REPORT THAT IT IS "A TINY BIT BETTER" CONTINUES TO HAVE LIQUID GREEN BM, DENIES FLATUS. NG TUBE HAS REMAINED CLAMPTED OVER NIGHT WITH NO INCREASE IN ABDOMINAL DISTENTION, WAS ATTATCHED TO SUCTION THIS AM WITH NO LARGE AMT OF DRAINAGE TO SUCTION OR GRAVITY. PT EDUCATED ON AMBULATING AT LEAST 3 SHORT WALKS PER DAY, PT VERBALIZED UNDERSTANDING.
--- NOTE | 2020-06-22 10:56 | NUR ---
NG TUBE REMOVED PER DR LOUIE ORDER, PT TOLERATED WELL. PT AMBULATED IN HALLWAY APROX 100 FEET AND TOELRATED WELL.
--- NOTE | 2020-06-22 18:32 | NUR ---
SHIFT SUMMARY PT HAS SHOWN IMPROVEMENT THIS SHIFT. PT UP AMBULATING IN HALLWAYS, NO FLATUS, 2 LIQUID BM THIS AM. PT REPORTS SHARP ABDOMINAL CRAMPING INCREASING WITH AMBULATION BUT NOT CONSTANT. MINIMAL USE OF ACCOUNT MANAGEMENT ASSISTANT T/O SHIFT. STILL ON SIPS/ICE CHIPS, TOLERATING WELL. PICCO DRESSING REMOVED PER DR LIBAN RODRIGUEZ, MEDIPORE APPLIED PER PT REQUEST FOR COMFORT UNDER THE BINDER.
--- NOTE | 2020-06-23 04:14 | NUR ---
SHIFT SUMMARY: PT DOING WELL IN BEGINNING OF THE SHIFT. SECOND HALF OF SHIFT PT BEGAN C/O INCREASE IN NAUSEA. MEDICATED WITH PHENERGAN PER EMAR. PT HAS HAD 3 LIQ BM'S. PASSING SOME FLATUS. MINIMAL PO INTAKE. ABD SOFT, HYPOACTIVE BT THROUGHOUT. MEDIPORE DRESSING C/D/I WITH ABD BINDER IN PLACE. PT ENCOURAGED TO AMBULATE BUT REPORTS THAT SHE IS TOO EXHAUSTED FROM HER NUMEROUS TRIPS TO THE BATHROOM. PT MEDICATED WITH TORADOL THIS MORNING FOR ABD CRAMPING. MINIMAL USE OF SOLAR SYSTEM INSTALLER PUMP.
[2020-06-23 14:51] LABS: BASOPHILS ABSOLUTE AUTO 0.04 K/mm3 (0.00-0.23); BASOPHILS PERCENT AUTO 0 % (0-2); EOSINOPHILS ABSOLUTE AUTO 0.14 K/mm3 (0.00-0.68); EOSINOPHILS PERCENT AUTO 1 % (0-6); Hematocrit 33.8 % (33.0-51.0); Hemoglobin 11.2 g/dL (11.5-16.0); IMMATURE GRAN ABSOLUTE AUTO 0.17 K/mm3 (0.00-0.10); IMMATURE GRAN PERCENT AUTO 2 % (0-1); LYMPHOCYTES ABSOLUTE AUTO 1.24 K/mm3 (0.84-5.20); LYMPHOCYTES PERCENT AUTO 13 % (21-46); MONOCYTES ABSOLUTE AUTO 0.75 K/mm3 (0.16-1.47); MONOCYTES PERCENT AUTO 8 % (4-13); Mean Corpuscular HGB 29.3 pg (26.0-34.0); Mean Corpuscular HGB Conc 33.1 g/dL (31.5-36.5); Mean Corpuscular Volume 89 fL (80-100); Mean Platelet Volume 9.7 fL (9.1-12.4); NEUTROPHILS ABSOLUTE AUTO 7.35 K/mm3 (1.96-9.15); NEUTROPHILS PERCENT AUTO 76 % (41-73); Platelet Count 325 K/mm3 (150-400); Red Blood Cell Count 3.82 M/mm3 (3.80-5.20); White Blood Cell Count 9.69 K/mm3 (4.00-11.30)
[2020-06-23 15:05] LABS: Alanine Aminotransfer (ALT/SGP 34 U/L (12-78); Albumin, Blood 2.4 g/dL (3.4-5.0); Albumin/Globulin Ratio 0.6 (0.8-1.8); Alk Phos 95 U/L (50-136); Anion Gap 7 mmol/L (6-16); Aspartate Aminotrans (AST/SGOT 26 U/L (12-37); Bilirubin, Total 0.6 mg/dL (0.1-1.0); Blood Urea Nitrogen 6 mg/dL (8-24); Bun/Creatinine Ratio 12.7 (12.0-20.0); CO2, Blood 26 mmol/L (21-32); Calcium, Blood 8.2 mg/dL (8.5-10.1); Chloride, Blood 108 mmol/L (98-108); Creatinine, Blood 0.47 mg/dL (0.40-1.00); Glomerular Filtration Rate >60 (60-); Glucose, Blood 81 mg/dL (70-99); Phosphorus, Blood 2.8 mg/dL (2.5-4.9); Potassium, Blood 3.7 mmol/L (3.5-5.5); Sodium, Blood 141 mmol/L (136-145); Total Protein, Blood 6.4 g/dL (6.4-8.2)
--- NOTE | 2020-06-23 18:13 | NUR ---
SUMMARY: NO ACUTE CHANGE TODAY. VSS, A/O. PT C/O NAUSEA INTERMITTANTLY, UNABLE TO TAKE IN FLUIDS. MEDICATED PER EMAR, PHENERGAN SEEMED TO HELP MORE THAN ZOFRAN. PT REPORTED MORE LETHARGIC TODAY. TOO TIRED TO WALK IN THE HALLS BUT MADE MANY VISITS TO BATHROOM, HAVING LIQ BM'S. IV CLINIMIX STARTED TONIGHT. PT REPORTS PAIN MANAGED WITH REHABILITATION THERAPIST. NO ACUTE SAFETY CONCERNS.
--- NOTE | 2020-06-23 20:30 | NUR ---
ASSESSMENT: PT REP FEELING WEAK W/"NO ENERGY" TODAY. PT REP ABD PAIN AMANDA 4/10, DOES C/O HEADACHE. PT REP UNING MOLD STRIPPER MINIMALLY FOR CONCERN OF SLOWING GI MOTILITY. BT HYPO, BD SOFT TO PALP, W/MILD DISTENTION. PT REP FREQ NAUSEA TODAY, DENIES AT THIS TIME, STATES NO APPETITE. CLIMINIX RUNNING @ 50ML/HR PER ORDERS. PT REP FEELING DISCOURAGED R/T PROLONGED RECOVERY AND "SET BACK" R/T NOT FEELING WELL TODAY. PT ALSO EXPRESSED CONCERNS R/T FINANCIAL BURDEON OF HOSPITAL STAY AND LOSS OF WORK. DISCUSSED POSSIBLE RESOURCES, SUPPORT AND EDUCATION PROVIDED TO PT AND SPOUSE.
--- NOTE | 2020-06-23 23:30 | NUR ---
PT OUT OF SHOWER. MIDLINE INCISION WNL, MESFIN INTACT, NO REDNESS OR DRAINAGE NOTED. NEW MEDIPORE DRESSING PLACED, ABD BINDER REPLACED. PT APPEARS IN MUCH BETTER SPIRITS AFTER SHOWER. PT SMILING AND CONVERSATIONAL W/STAFF AND SIG OTHER. PT STATES "BAKED POTATO AND SALAD" SOUNDS GOOD. PT REP "THIS IS THE FIRST TIME ANYTHING HAS SOUNDED GOOD TO ME"
--- NOTE | 2020-06-24 05:11 | NUR ---
SHIFT SUMMARY POD7 EXP LAP, AOX4. APPEARS TO BE TEARFUL AND ANXIOUS AT THE BEGINNING OF THE SHIFT. PT STILL C/O WEAKNESS AND "NO ENERGY". ALTHOUGH SHE STS THAT SHE FELT BETTER AFTER TAKING A SHOWER. PT C/O INTERMITTENT NAUSEA T/O SHIFT. ADMNISTERED PHENEG AND ZOFRAN. PAIN MANAGED W/ TORADOL AND REPORTS MINIMAL USE OF SHIPYARD PAINTER APPRENTICE. SHE REPORTS 6 LIQ BM. TOLERATING SIPS/ICE CHIPS DENIES VOMITING. STILL NO APPETITE. DENIES PASSSING FLATUS. CLINIMIX INFUSING, ABX ADMINISTERED. MID ABD INCISION W/ STAPLE REMAIN CDI W/ MEDIPORE DRESSING. LAP SITE REMAIN DRY AND APPEARS HEALING. MILD ABD DISTENTION AND ABD BINDER STILL IN PLACED. INDEPENDENT IN ROOM W/ SPOUSE AT BEDSIDE.
--- NOTE | 2020-06-24 06:18 | NUR ---
PT REPORTS FEELING "NO ENERGY AND TIRED". SHE C/O NAUSEA, ZOFRAN HELPED A LITTLE. HAD ANOTHER LARGE LIQ BM. TOTAL OF 7 T/O SHIFT. SHE ALSO STS THAT SHE DIDN'T GET ENOUGH SLEEP LAST NIGHT.
[2020-06-24 06:29] LABS: BASOPHILS ABSOLUTE AUTO 0.03 K/mm3 (0.00-0.23); BASOPHILS PERCENT AUTO 0 % (0-2); EOSINOPHILS ABSOLUTE AUTO 0.12 K/mm3 (0.00-0.68); EOSINOPHILS PERCENT AUTO 2 % (0-6); Hematocrit 33.4 % (33.0-51.0); Hemoglobin 10.7 g/dL (11.5-16.0); IMMATURE GRAN ABSOLUTE AUTO 0.16 K/mm3 (0.00-0.10); IMMATURE GRAN PERCENT AUTO 2 % (0-1); LYMPHOCYTES ABSOLUTE AUTO 1.07 K/mm3 (0.84-5.20); LYMPHOCYTES PERCENT AUTO 15 % (21-46); MONOCYTES ABSOLUTE AUTO 0.62 K/mm3 (0.16-1.47); MONOCYTES PERCENT AUTO 9 % (4-13); Mean Corpuscular HGB 28.7 pg (26.0-34.0); Mean Corpuscular Volume 90 fL (80-100); Mean Platelet Volume 9.9 fL (9.1-12.4); NEUTROPHILS ABSOLUTE AUTO 5.32 K/mm3 (1.96-9.15); NEUTROPHILS PERCENT AUTO 73 % (41-73); Platelet Count 320 K/mm3 (150-400); RDW Standard Deviation 42.1 fL (35.1-46.3); Red Blood Cell Count 3.73 M/mm3 (3.80-5.20); White Blood Cell Count 7.32 K/mm3 (4.00-11.30)
--- NOTE | 2020-06-24 06:39 | NUR ---
POD 8 S/P EXP LAP. PT VSS T/O NIGHT. DRESSING CDI. PAIN MGD W/TORADOL, PT USING SENIOR ETL DEVELOPER MINIMALLY. PT CONT TO C/O INTERMITTANT NAUSEA, NO EMESIS, PT MED PER EMAR, REP BETTER RELIEF W/PHENERGAN. PT REP MU.TIPLE LIQ BM, NO FLATUS. ABD SOFT TO PALP, BY HYPO. PT NPO X FEW ICE CHIPS. CLINIMIX CONT PER ORDERS. PT W/FLAT AFFECT, REP FEELING DISCOURAGED, DID PERK UP FOR A WHILE AFTER SHOWER THIS PADMINI. SUPPORT AND EDCATION PRN T/O NGIHT, PT RECEPTIVE TO INFO. PT UP INDEP IN ROOM, SIG OTHER AT BEDSIDE.
[2020-06-24 06:43] LABS: Anion Gap 6 mmol/L (6-16); Blood Urea Nitrogen 6 mg/dL (8-24); CO2, Blood 26 mmol/L (21-32); Calcium, Blood 8.4 mg/dL (8.5-10.1); Chloride, Blood 109 mmol/L (98-108); Glomerular Filtration Rate >60 (60-); Glucose, Blood 94 mg/dL (70-99); Magnesium, Blood 2.1 mg/dL (1.6-2.4); Phosphorus, Blood 3.6 mg/dL (2.5-4.9); Potassium, Blood 3.5 mmol/L (3.5-5.5); Sodium, Blood 141 mmol/L (136-145)
--- NOTE | 2020-06-24 12:24 | NUR ---
PT IV LEAKING, IV DC'D BY CYCLE COUNTER SEE CHARTING. CALL MADE TO CYNTHIA, MEDICAL FLOOR INDUSTRIAL TRAINING SPECIALIST. PLAN IS TO PLACE POWERGLIDE WHEN SHE IS AVALIBLE. CLINIMIX, LIPID INFUSION, AND PRINT SHOP STENOGRAPHER ON HOLD AT THIS TIME.
--- NOTE | 2020-06-24 19:38 | NUR ---
SUMMARY: PT FEELING BETTER TODAY OVERALL.REPORTED MINIMAL NAUSEA, AND PAIN. BACKER UP PUMP DC'D AT ABOUT 1430 . TOLERATING LIQ DIET. ABLE TO TAKE 2 WALKS IN HALLS. NEW IV TO R ARM, INFUSING CLINIMIX AND LIPIDS AT THIS TIME. PT REPORTS FEELING BETTER, NO GAS STILL, IS HAVING LIQ BMS. REPORT GIVEN TO DOUG MEDLEY.
--- NOTE | 2020-06-24 21:37 | NUR ---
PT IV POSITIONAL, RAMANDEEP LNOT ALLOW PUMP TO RUN. PT DECLINING TO HAVE ANOTHER IV STARTED AT THIS TIME. PT STATES 4 ATEMPTS TODAY. PT DENIES N/V, IS AMANDA CL PO. PT REQ TO LEAVE IV DISCONNECTED FOR NIGHT AND RAMANDEEP LTRIAL PO FLUIDS ONLY. PT EDUCATED TO TAKE FLUIDS SLOWLY AND TO NOTIFY STAFF FOR N/V.
--- NOTE | 2020-06-25 05:21 | NUR ---
SHIFT SUMMARY PT IS FEELING BETTER T/0 SHIFT. TOLERATING CLEAR LIQ DIET DENIES N/V.PT DENIES PASSING GAS AND BM T/O SHIFT. PAIN IS TOLERABLE, MEDICATED W/ TORADOL ONCE LAST NIGHT. RAC IV IS POSITIONAL, PT DECLINE TO START IV LAST NIGHT. WILL ADDRESS A NEW IV TO DAY SHIFT NURSE. PT HAD BENADRYL, REPORTS THAT SHE WAS ABLE TO REST AND HAD ATLEAST 4HR SLEEP. CALL LIGHT W/IN REACH.
[2020-06-25 05:48] LABS: Anion Gap 9 mmol/L (6-16); Blood Urea Nitrogen 7 mg/dL (8-24); Bun/Creatinine Ratio 13.5 (12.0-20.0); CO2, Blood 25 mmol/L (21-32); Calcium, Blood 8.8 mg/dL (8.5-10.1); Chloride, Blood 108 mmol/L (98-108); Creatinine, Blood 0.52 mg/dL (0.40-1.00); Glomerular Filtration Rate >60 (60-); Glucose, Blood 71 mg/dL (70-99); Magnesium, Blood 2.2 mg/dL (1.6-2.4); Phosphorus, Blood 3.3 mg/dL (2.5-4.9); Potassium, Blood 3.5 mmol/L (3.5-5.5); Sodium, Blood 142 mmol/L (136-145); Triglycerides 176 mg/dL (30-140)
--- NOTE | 2020-06-25 06:10 | NUR ---
POD 9 S/P EXP LAP. PT VSS T/O NIGHT. DRESSING CDI, BINDER IN PLACE. ABD MILDLY DISTENDED, SOFT TO PALP. PT AMANDA CL PO, NO N/V, PT REP DENIES PASSING FLATUS, NO BM THIS SHIFT. IV POSITIONAL (SEE PREV NOTE). PT DRANK APPX 400ML WATER, W/400ML URINE OUTPUT. PT REQ TO NOT HAVE NEW IV PLACED. PT REP HAVING SLEPT WELL FOR APPX 4HRS AFTER BENADRYL GIVEN. PT REP PAIN MIN THIS AM, PAIN MGD W/TORADOL X2; PT REQ TO LIMIT NARCOTICS R/T SIDE EFFECTS, STATES "I JUST DON'T LIKE HOW THEY MAKE ME FEEL" PT IN GOOD SPIRITS, IS PLEASANT AND COOPERATIVE W/CARE, ENCOURAGEMENT AND EDUCATION PRIVIDED PRN T/O NIGHT.
--- NOTE | 2020-06-25 07:10 | NUR ---
pt sleeping wakes to verbal stimuli stated the benadryl helped her to sleep last night
--- NOTE | 2020-06-25 09:40 | NUR ---
pt awake oob to bathroom to void still no bm or flatus per pt last night but stated she slept well was thankful to sleep in stated at home with her children she gets up on average at 0530 this is the first night in a few nights req to use the benadryl again no nausea also req no iv placement if at all poss discussed with pt drinking gatorade and using magic cup or somehting similar to get protien will talk with dietary
--- NOTE | 2020-06-25 12:03 | NUR ---
pt sitting up in chair stated she had a bm and passed some gas
--- NOTE | 2020-06-25 12:51 | NUR ---
dr suh by to see pt
--- NOTE | 2020-06-25 16:45 | NUR ---
MESFIN REMOVED STERI STRIPS PLACED PT AMANDA WELL
--- NOTE | 2020-06-25 17:59 | NUR ---
pt eating dinner adv to reg
--- NOTE | 2020-06-25 18:11 | NUR ---
pt had most of her tomato soup and her dinner roll germain it well no nausea
--- NOTE | 2020-06-26 05:00 | NUR ---
PATIENT IS INDEPENDENT IN THE ROOM. SHE HAS SLEPT ALL NIGHT. SHE HAS NOT CALLED FOR ANY ASSISTANCE. ROUNDING DONE. NO ACUTE CHANGES. CALL LIGHT IN REACH.
[2020-06-26 08:06] LABS: Anion Gap 10 mmol/L (6-16); Blood Urea Nitrogen 6 mg/dL (8-24); Bun/Creatinine Ratio 11.5 (12.0-20.0); CO2, Blood 21 mmol/L (21-32); Calcium, Blood 8.9 mg/dL (8.5-10.1); Chloride, Blood 108 mmol/L (98-108); Creatinine, Blood 0.52 mg/dL (0.40-1.00); Glomerular Filtration Rate >60 (60-); Glucose, Blood 82 mg/dL (70-99); Phosphorus, Blood 3.5 mg/dL (2.5-4.9); Potassium, Blood 3.7 mmol/L (3.5-5.5); Sodium, Blood 139 mmol/L (136-145)
--- NOTE | 2020-06-26 10:41 | NUR ---
Patient discharged home. IV out. Discharge instructions given, explained and signed. Patient to follo up with surgery. Patient denied questions or concerns at discharge. Patient denied wheelchair and ambulated out of hospital accompanied by significant other.
== END 2020-06-26 10:00 | disposition home or self-care (01) | DRG 908 ==
LOC: ER 19:07 → SURS 23:24 → ICUW 23:24 → SURS 06-16 02:39 → ICUW 06-16 02:39 → SURS 06-16 14:27 → ICUW 06-16 14:27 → SURS 06-26 10:00
PROVIDERS: Emergency Medicine; Surgery; ADMIT Surgery
PROC: 0W9G0ZZ Drainage of Peritoneal Cavity, Open Approach (ICD-10-PCS; 2020-06-16)
PROC: 0DQB0ZZ Repair Ileum, Open Approach (ICD-10-PCS; 2020-06-16)
PROC: 0W9G0ZZ Drainage of Peritoneal Cavity, Open Approach (ICD-10-PCS; principal; 2020-06-16 12:30)
DX: K91.71 Accidental puncture and laceration of a digestive system organ or structure during a digestive system procedure (principal); K91.89 Other postprocedural complications and disorders of digestive system; K56.7 Ileus, unspecified; Z87.891 Personal history of nicotine dependence; K66.8 Other specified disorders of peritoneum; Y83.8 Other surgical procedures as the cause of abnormal reaction of the patient, or of later complication, without mention of misadventure at the time of the procedure; Y76.3 Surgical instruments, materials and obstetric and gynecological devices (including sutures) associated with adverse incidents; Y92.234 Operating room of hospital as the place of occurrence of the external cause
CPT/HCPCS: 0241U; 31720; 36415; 74176; 74177; 80048; 80053; 81001; 83735; 84100; 84478; 85025; 94002; 94762; 96374; 96375; 99285-25; J1100; J1170; J1650; J1885; J2250; J2405; J2543; J2550; J2704; J2765; J3010; J7030; J7050; J7120; Q0163; Q9967; V2790

== ENCOUNTER 2021-05-19 07:37 | Day surgery (SDC) | payer OTHER ==
[~2021-05-19] VITALS: Ht 167.6 cm; Wt 91.1 kg
[~2021-05-19 07:37] MED LIST changes: +C COMPLEX1000 M1 PO; +ESCI10 PO; +IBU800 M1 PO; +ONDA4ODT PO
[2021-05-19] MEDS ORDERED: IRON18 MG (07:53)
== END 2021-05-19 09:30 | disposition home or self-care (01) ==
LOC: ORSCSDS 07:37
DX: R14.0 Abdominal distension (gaseous) (principal); K90.0 Celiac disease; R10.31 Right lower quadrant pain; F41.8 Other specified anxiety disorders; Z79.899 Other long term (current) drug therapy; Z87.891 Personal history of nicotine dependence
CPT/HCPCS: 88305; 88342; J2250; J2704; J7120